=== PATIENT | female | born 1940 | race Caucasian/White ===

== ENCOUNTER 2017-02-23 08:30 | Day surgery (SDC) | payer MEDICARE, BC ==
[~2017-02-23] VITALS: Ht 157.5 cm; Wt 55.0 kg
--- NOTE | ~2017-02-23 | OP ---
PATIENT NAME: GORDO ALMONTE MEDICAL RECORD: [id number] LOCATION:[facility] ADMISSION DATE: SURGEON: JOSE E DING DO DATE OF OPERATION: 02/23/2017 PROCEDURE: Colonoscopy. INDICATION: Screening for colorectal cancer with a history of colon polyps. SCOPE: [employer] video pediatric colonoscope. MEDICATIONS: Propofol 220 mg IV per anesthesia. WITHDRAWAL TIME: 9 minutes. ESTIMATED BLOOD LOSS: None. COMPLICATIONS: None. FINDINGS: Informed consent was given. The patient was made comfortable with the above medication. After reaching an adequate level of sedation by slow IV push, the patient was placed on her left side. A digital rectal examination was performed and was normal. The endoscope was then advanced under direct visualization through the rectum to the cecum with visualization of the appendiceal orifice and the ileocecal valve. The prep was good. The scope was slowly withdrawn and the mucosa was carefully examined. There were no visualized polyps on this examined. There was evidence of mild diverticulosis without evidence of diverticulitis in the sigmoid colon. Retroflexion was performed in the rectum with small nonbleeding internal hemorrhoids visualized. The scope was completely withdrawn from the patient. The patient tolerated the procedure well and there were no complications. IMPRESSION: 1. Diverticulosis. 2. Small nonbleeding internal hemorrhoids. PLAN AND RECOMMENDATIONS: 1. Discharge home when recovery parameters are met. 2. Continue current medications. 3. Continue current diet. 4. No further colonoscopies are required due to the patient's age. TRANSINT:[id number] Voice Confirmation ID: [id number] DOCUMENT ID: [id number] JOSE E DING DO CC: [id number] DICTATION DATE: 02/23/17 1006 C SOFTWARE DEVELOPER: 02/23/17 1739 [facility] 02/23/17 [place] [id number]
[2017-02-23] MEDS ORDERED: LYRICA150 MG PO (09:00)
[2017-02-23] MEDS ORDERED: XANAX0.25 MG PO (09:01)
[2017-02-23] MEDS ORDERED: NORTRIPTYLINE H50 MG PO (09:01)
[2017-02-23] MEDS ORDERED: HYDROCODON-ACE1 EAC9 PO (09:02)
[2017-02-23] MEDS ORDERED: CYMBALTA30 MG PO (09:02)
[2017-02-23] MEDS ORDERED: LEVOTHYROXINE50 MCG PO (09:03)
[2017-02-23] MEDS ORDERED: NEXIUM40 MG PO (09:03)
[2017-02-23] MEDS ORDERED: VITAMIN D5000 UNIT PO (09:03)
[2017-02-23] MEDS ORDERED: LISINOPRIL5 MG PO (09:03)
[2017-02-23] MEDS ORDERED: BIOTIN5 MG PO (09:03)
[2017-02-23] MEDS ORDERED: CITRUCEL500 MG PO (09:04)
[2017-02-23] MEDS ORDERED: PROBIOTIC1 EAC1 PO (09:04)
[2017-02-23 09:10] VITALS: BP 121/44; Ht 157.5 cm; Wt 55.0 kg
[2017-02-23 09:26] LABS: HEMATOCRIT 36.7 % (36.0-48.0); HEMOGLOBIN 12.2 g/dL (12-16); MCHC 33.2 g/dL (31.0-37.0); MCV 90.4 fL (80.0-100.0); MEAN PLATELET VOLUME 9.1 fL (7.4-10.4); RBC 4.06 10x6/uL (4.00-5.40); RDW 13.5 % (11.5-14.5); WBC 4.7 10x3/uL (4.8-10.8)
== END 2017-02-23 11:15 | disposition home or self-care (01) ==
LOC: D.OPS 08:30
PROVIDERS: Anesthesiology
DX: Z12.11 Encounter for screening for malignant neoplasm of colon (principal); I10 Essential (primary) hypertension; I50.9 Heart failure, unspecified; G47.33 Obstructive sleep apnea (adult) (pediatric); Z01.812 Encounter for preprocedural laboratory examination; K64.8 Other hemorrhoids; K57.90 Diverticulosis of intestine, part unspecified, without perforation or abscess without bleeding